=== PATIENT | male | born 1980 | race Caucasian/White ===

== ENCOUNTER 2016-05-02 07:54 | Day surgery (SDC) | payer OTHER ==
[2016-05-02] MEDS ORDERED: XYLOCAINE 1% HCL 20 ML MDV ONE (09:00)
[2016-05-02 11:00] VITALS: BP 150/84; PULSE 79; O2SAT 96
[2016-05-02] MEDS ORDERED: XYLOCAINE 1% HCL 20 ML MDV IJ ONE (11:00)
--- NOTE | 2016-05-03 07:51 | OP ---
SURGERY DATE/TIME: 05/02/2016 0940 PREOPERATIVE DIAGNOSIS: A 1.5 cm sebaceous cyst to the scalp, 1.5 cm sebaceous cyst to the back. POSTOPERATIVE DIAGNOSIS: A 1.5 cm sebaceous cyst to the scalp, 1.5 cm sebaceous cyst to the back. PROCEDURE: Excision and closure of these two lesions. SURGEON: Acosta Valdovinos M.D. ANESTHESIA: Local. COMPLICATIONS: None. CONDITION: Stable. INDICATION: A patient requiring removal of two sebaceous cysts one on the scalp and one on the back. They both are enlarging, both painful. The one on the back has been intermittently infected. DESCRIPTION OF PROCEDURE: Elliptical excision the scalp lesion removed totally intact. The back lesion a little more extensive. It had been previously ruptured but the cyst wall was totally removed. The scalp lesion closed with inverting 4-0 Vicryl and 4-0 Prolene. The back lesion closed with vertical mattress sutures 3-0 Prolene loosely. Sterile dressing applied. The patient tolerated the procedure satisfactorily.
== END 2016-05-02 10:44 | disposition home or self-care (01) ==
LOC: SDC 07:54
PROVIDERS: ATTEND Surgery
PROC: 0HB0XZX Excision of Scalp Skin, External Approach, Diagnostic (ICD-10-PCS; principal; 2016-05-02)
PROC: 0HB6XZX Excision of Back Skin, External Approach, Diagnostic (ICD-10-PCS; 2016-05-02)
DX: L72.3 Sebaceous cyst (principal)
CPT/HCPCS: 36415; 88304

== ENCOUNTER 2017-01-22 10:08 | Emergency (ER) | payer OTHER ==
[2017-01-22] MEDS ORDERED: TORAdol 30 mg Injection IM ONE (10:50)
--- NOTE | 2017-01-22 10:50 | ERPHSYRPT ---
- History of Present Illness Time Seen by Provider: 01/22/17 10:46 Exam Limitations: no limitations Patient Subjective Stated Complaint: c/o having injury week ago when he fell and hit a railing at home. States was doing fine but this morning felt a pop and has been having worsening pain since. Right side mid-thoracic region Triage Nursing Assessment: Clear breath sounds Bilat; intermittent pain to right rib area during assessment, uncomfortable and can't lay flat or against back of stretcher. More comfortable in upright position Physician History: mild to mod chest wall pain on the right side for one week, nonrad, +pleuritic after trip and fall by accident, no NV, no gross hematuria, no other injury Timing/Duration: week(s) Severity: moderate Associated Symptoms: No vomiting, No abdominal pain, No fever, No syncope Allergies/Adverse Reactions: No Known Drug Allergies Allergy (Verified 05/02/16 08:16) Home Medications: Flaxseed Oil [Flax Seed Oil] 1,000 mg PO DAILY 04/29/16 [History] Multivitamin [Men's Multi-Vitamin] 1 each PO DAILY 04/29/16 [History] [place]-3S/Dha/Epa/Fish Oil [Fish Oil [place]-3 Softgel] 300 mg PO DAILY 04/29/16 [ History] Hx Tetanus, Diphtheria Vaccination/Date Given: (unknown) Hx Influenza Vaccination/Date Given: No Hx Pneumococcal Vaccination/Date Given: No Immunizations Up to Date: Yes - Review of Systems Constitutional: No Symptoms Eyes: No Symptoms Ears, Nose, & Throat: No Symptoms Respiratory: No Cyanosis, No Stridor Cardiac: No Palpitations, No Syncope Abdominal/Gastrointestinal: No Abdominal Pain Genitourinary Symptoms: No Hematuria Musculoskeletal: No Neck Pain, No Deformity Skin: No Rash Neurological: No Dizziness, No Headache Psychological: No Symptoms - Past Medical History Pertinent Past Medical History: No Neurological History: No Pertinent History ENT History: No Pertinent History Cardiac History: No Pertinent History Respiratory History: No Pertinent History Endocrine Medical History: No Pertinent History Musculoskeletal History: No Pertinent History GI Medical History: No Pertinent History History: No Pertinent History Psycho-Social History: No Pertinent History Male Reproductive Disorders: No Pertinent History - Past Surgical History Past Surgical History: No Neuro Surgical History: No Pertinent History Cardiac: No Pertinent History Respiratory: No Pertinent History Gastrointestinal: No Pertinent History Genitourinary: No Pertinent History Musculoskeletal: Other Male Surgical History: No Pertinent History Other Surgical History: something removed from armpit as a child - Social History Smoking Status: Current every day smoker Exposure to second hand smoke: No Drug Use: none Patient Lives Alone: No - Nursing Vital Signs Nursing Vital Signs: Initial Vital Signs Temperature 97.7 F 01/22/17 10:20 Pulse Rate 84 01/22/17 10:20 Respiratory Rate 18 01/22/17 10:20 O2 Sat by Pulse Oximetry 99 01/22/17 10:20 Pain Scale Pain Intensity 9 - Physical Exam General Appearance: no apparent distress Eye Exam: eyes nml inspection Ears, Nose, Throat Exam: moist mucous membranes Neck Exam: normal inspection, non-tender Respiratory Exam: normal breath sounds Cardiovascular Exam: No friction rub, No tachycardia Gastrointestinal/Abdomen Exam: soft, No tenderness Back Exam: point tenderness Extremity Exam: normal range of motion, pelvis stable Neurologic Exam: alert, oriented x 3, cooperative Skin Exam: warm, dry SpO2: 99 Oxygen Delivery: Room Air - Radiology Exams Chest X-ray Interpretation: Discussed w/ radiologist, Negative - CT Exams Abdomen/Pelvis CT Interpretation: Discussed w/radiologist, Other (nondisplaced rt 10th rib fx, no soft tissue injury) Ordered Tests: Active Orders 24 hr Category Date Time Status ABDOMEN AND PELVIS W CONTRAST [CT] Stat Exams 01/22/17 12:36 Completed CHEST 2 VIEWS (PA AND LAT) Stat Exams 01/22/17 10:42 Completed CBC W DIFF Stat Lab 01/22/17 11:03 Completed CMP Stat Lab 01/22/17 11:03 Completed D-DIMER QUANTITATION Stat Lab 01/22/17 11:03 Completed UA W/RFX UR CULTURE Stat Lab 01/22/17 10:44 Completed Medication Summary Discontinued Medications Generic Name Dose Route Start Last Admin Trade Name Freq PRN Reason Stop Dose Admin Ketorolac Tromethamine 60 mg 01/22/17 10:50 01/22/17 11:04 Toradol 30 Mg Injection IM 01/22/17 10:51 60 mg STAT ONE Administration Ketorolac Tromethamine Confirm 01/22/17 11:00 Toradol 30 Mg Injection Administered 01/22/17 11:01 Dose 60 mg .ROUTE .STK-MED ONE Lab/Rad Data: Laboratory Result Diagrams 01/22/17 11:03 01/22/17 11:03 Laboratory Results 01/22/17 01/22/17 01/22/17 Range/Units 11:03 11:03 11:03 WBC 10.4 (4.0-10.5) K/mm3 RBC 4.98 (4.1-5.6) M/mm3 Hgb 15.4 (12.5-18.0) gm/dl Hct 45.3 (42-50) % MCV 91.0 (78-100) fl MCH 30.9 (26-32) pg MCHC 34.0 (32-36) g/dl RDW 13.2 (11.5-14.0) % Plt Count 186 (150-450) K/mm3 MPV 11.7 H (6-9.5) fl Gran % 79.9 H (36.0-66.0) % Lymphocytes % 12.3 L (24.0-44.0) % Monocytes % 6.6 (0.0-12.0) % Eosinophils % 0.9 (0.00-5.0) % Basophils % 0.3 (0.0-0.4) % Basophils # 0.03 (0-0.4) D-Dimer < 200 (0-500) ng/mL Sodium 138 (136-145) mEq/L Potassium 4.1 (3.5-5.1) mEq/L Chloride 104 (98-107) mEq/L Carbon Dioxide 24.9 (21-32) mEq/L Anion Gap 12.9 (5-15) MEQ/L BUN 18 (9-20) mg/dL Creatinine 1.03 (0.55-1.30) mg/dl Estimated GFR > 60 ML/MIN Glucose 108 (70-110) MG/DL Calcium 8.7 (8.5-10.1) mg/dL Total Bilirubin 0.90 (0.2-1.0) mg/dL AST 32 (15-37) U/L ALT 39 (12-78) U/L Alkaline Phosphatase 87 (46-116) U/L Serum Total Protein 8.0 (6.4-8.2) gm/dL Albumin 4.1 (3.4-5.0) g/dL Ur Collection Type Urine Color (YELLOW) Urine Appearance (CLEAR) Urine pH (5-6) Ur Specific [place] (1.005-1.025) Urine Protein (Negative) Urine Ketones (NEGATIVE) Urine Blood (0-5) George/ul Urine Nitrite (NEGATIVE) Urine Bilirubin (NEGATIVE) Urine Urobilinogen (0-1) mg/dL Ur Leukocyte Esterase (NEGATIVE) Urine Culture Reflexed (NO) Urine Glucose (NEGATIVE) mg/dL Specimen Received 01/22/17 Range/Units 10:44 WBC (4.0-10.5) K/mm3 RBC (4.1-5.6) M/mm3 Hgb (12.5-18.0) gm/dl Hct (42-50) % MCV (78-100) fl MCH (26-32) pg MCHC (32-36) g/dl RDW (11.5-14.0) % Plt Count (150-450) K/mm3 MPV (6-9.5) fl Gran % (36.0-66.0) % Lymphocytes % (24.0-44.0) % Monocytes % (0.0-12.0) % Eosinophils % (0.00-5.0) % Basophils % (0.0-0.4) % Basophils # (0-0.4) D-Dimer (0-500) ng/mL Sodium (136-145) mEq/L Potassium (3.5-5.1) mEq/L Chloride (98-107) mEq/L Carbon Dioxide (21-32) mEq/L Anion Gap (5-15) MEQ/L BUN (9-20) mg/dL Creatinine (0.55-1.30) mg/dl Estimated GFR ML/MIN Glucose (70-110) MG/DL Calcium (8.5-10.1) mg/dL Total Bilirubin (0.2-1.0) mg/dL AST (15-37) U/L ALT (12-78) U/L Alkaline Phosphatase (46-116) U/L Serum Total Protein (6.4-8.2) gm/dL Albumin (3.4-5.0) g/dL Ur Collection Type VOID Urine Color YELLOW (YELLOW) Urine Appearance CLEAR (CLEAR) Urine pH 8.0 (5-6) Ur Specific [place] 1.005 (1.005-1.025) Urine Protein NEGATIVE (Negative) Urine Ketones NEGATIVE (NEGATIVE) Urine Blood NEGATIVE (0-5) George/ul Urine Nitrite NEGATIVE (NEGATIVE) Urine Bilirubin NEGATIVE (NEGATIVE) Urine Urobilinogen NORMAL (0-1) mg/dL Ur Leukocyte Esterase NEGATIVE (NEGATIVE) Urine Culture Reflexed NO (NO) Urine Glucose NEGATIVE (NEGATIVE) mg/dL Specimen Received 01/22/17 1008 - Progress Progress: improved Discussed with : Other Counseled pt/family regarding: lab results, diagnosis, need for follow-up, rad results (ice and motrin, follow up second butler doctor, return if worse, work note for 2 days) - Departure Time of Disposition: 13:44 Departure Disposition: Home Clinical Impression: Fracture, rib Qualifiers: Encounter type: initial encounter Rib fracture type: single rib Fracture type: closed Laterality: right Qualified Code(s): S22.31XA - Fracture of one rib, right side, initial encounter for closed fracture Condition: Stable Critical Care Time: No Referrals: DOCTOR,NO FAMILY [Primary Care Provider] - Instructions: Rib Fracture Additional Instructions: ice and motrin return if worse
[2017-01-22] MEDS ORDERED: TORAdol 30 mg Injection ONE (11:00)
[2017-01-22 11:07] LABS: BASOPHIL % 0.3 % (0.0-0.4); Eosinophil % 0.9 % (0.00-5.0); Granulocytes % 79.9 % (36.0-66.0); Lymphocytes % 12.3 % (24.0-44.0); Mean Corpuscular Hemoglobin 30.9 pg (26-32); Mean Platelet Volume 11.7 fl (6-9.5); Monocytes % 6.6 % (0.0-12.0); Platelet Count 186 K/mm3 (150-450); Red Blood Count 4.98 M/mm3 (4.1-5.6); Red Cell Distribution Width 13.2 % (11.5-14.0); White Blood Count 10.4 K/mm3 (4.0-10.5)
--- NOTE | 2017-01-22 11:10 | XRAY ---
Indication: Chest wall pain Comparison: None PA/lateral chest demonstrates normal heart and lungs with a few incidental calcified granulomas. Bony thorax intact with minimal degenerative changes.
[2017-01-22 11:33] LABS: ALBUMIN 4.1 g/dL (3.4-5.0); ALKALINE PHOSPHATASE 87 U/L (46-116); ANION GAP 12.9 MEQ/L (5-15); BLOOD UREA NITROGEN 18 mg/dL (9-20); CHLORIDE 104 mEq/L (98-107); Carbon Dioxide 24.9 mEq/L (21-32); Glucose 108 MG/DL (70-110); Potassium 4.1 mEq/L (3.5-5.1); SGOT/AST 32 U/L (15-37); SGPT/ALT 39 U/L (12-78); SODIUM 138 mEq/L (136-145)
[2017-01-22 11:39] LABS: ADD URINE CULTURE? NO (NO); Bilirubin NEGATIVE (NEGATIVE); Blood NEGATIVE Ery/ul (0-5); COMPLETE URINE MICROSCOPIC? NO; Collection Type VOID; Glucose NEGATIVE (NEGATIVE); Leukocyte Esterase NEGATIVE (NEGATIVE)
--- NOTE | 2017-01-22 13:25 | XRAY ---
Indication: Left flank pain following fall from ladder. Multiple contiguous axial images obtained through the abdomen and pelvis using 80 cc Isovue 370 contrast only. Comparison: None Lung bases demonstrate minimal bibasilar dependent atelectasis and right lower lobe calcified granuloma. No infiltrate or effusion. Heart is not enlarged. Noncontrasted stomach and bowel loops appear nonobstructed. Mild diffuse scattered colonic fecal debris throughout. Normal appendix. Minimal sigmoid diverticulosis. A few calcified splenic granulomas. Remaining liver, gallbladder, pancreas, spleen, adrenal glands, kidneys, ureters, bladder, and aorta appear normal in CT appearance and attenuation. No pathologic retroperitoneal lymphadenopathy. Bone windows reveal nondisplaced right 10th rib posterior lateral hairline fracture. Remaining osseous structures intact with multilevel thoracolumbar small Schmorl nodes. Small fatty umbilical hernia. Impression: 1. Mild fecal stasis without obstruction. Sigmoid diverticulosis. 2. Small fatty umbilical hernia and evidence for old granulomatous disease. 3. Nondisplaced right 10th rib hairline fracture. CTDI 18.51
[2017-01-22 13:45] VITALS: O2SAT 99
[2017-01-22 13:56] VITALS: BP 128/70; PULSE 70
== END 2017-01-22 13:59 | disposition home or self-care (01) ==
LOC: ED 10:08
DX: S22.31XA Fracture of one rib, right side, initial encounter for closed fracture (principal); W01.198A Fall on same level from slipping, tripping and stumbling with subsequent striking against other object, initial encounter
CPT/HCPCS: 36415; 71020; 74177; 80053; 81002; 85025; 85379; 96372; 99283; 99284; J1885